=== PATIENT | male | born 1980 | race Caucasian/White ===

== ENCOUNTER 2021-09-27 09:59 | Outpatient (CLI) | payer OTHER, SELFPAY ==
[2021-09-27 10:15] VITALS: BP 136/73; PULSE 79; RESP 18; TEMP 36.8; O2SAT 96
[2021-09-27 10:20] VITALS: BMI 31.6
[2021-09-27 10:43] VITALS: BP 121/77; PULSE 74; RESP 17; TEMP 36.7; O2SAT 96
[2021-09-27 11:45] VITALS: BP 129/76; PULSE 76; RESP 16; TEMP 36.4; O2SAT 94
== END 2021-09-27 10:00 | disposition home or self-care (01) ==
PROVIDERS: PCP Nurse Practitioner Family; Visit Provider Nurse Practitioner Family
DX: U07.1 COVID-19 (principal)
CPT/HCPCS: 96365

== ENCOUNTER → 2024-07-05 08:34 | Outpatient (BNVA) | payer OTHER, SELFPAY | PROVIDERS: PCP Nurse Practitioner Family; Visit Provider Dermatology | DX: Z01.89 Encounter for other specified special examinations (principal) | CPT/HCPCS: 83721 ==

== ENCOUNTER → 2024-10-04 08:21 | Outpatient (BNVA) | payer SELFPAY | PROVIDERS: PCP Nurse Practitioner Family; Visit Provider Dermatology | DX: Z01.89 Encounter for other specified special examinations (principal) | CPT/HCPCS: 83721 ==

== ENCOUNTER → 2025-05-24 10:36 | Outpatient (BNVA) | payer SELFPAY | PROVIDERS: PCP Nurse Practitioner Family; Visit Provider Nurse Practitioner | DX: E11.65 Type 2 diabetes mellitus with hyperglycemia (principal); Z79.4 Long term (current) use of insulin | CPT/HCPCS: 81000 ==